=== PATIENT | female | born 1995 | race Caucasian/White ===

== ENCOUNTER 2017-02-27 06:46 | Emergency (ER) | payer MEDICAID ==
[~2017-02-27] VITALS: Ht 160 cm; Wt 68.0 kg
[~2017-02-27 06:46] MED LIST: IBUP-1542 PO
[2017-02-27 06:55] VITALS: Ht 160 cm; Wt 68.0 kg
[2017-02-27 07:32] LABS: ADD SCAN DIFF NO
[2017-02-27 07:35] LABS: ADD UMIC YES; URINE BILIRUBIN (Dip) NEGATIVE (NEGATIVE); URINE BLOOD (Dip) TRACE (NEGATIVE); URINE COLOR LT. YELLOW (YELLOW); URINE GLUCOSE (Dip) NEGATIVE (NEGATIVE); URINE KETONES (Dip) NEGATIVE (NEGATIVE); URINE LEUKOCYTE ESTERASE (Dip) NEGATIVE (NEGATIVE); URINE NITRITE (Dip) NEGATIVE (NEGATIVE); URINE TOTAL PROTEIN (Dip) NEGATIVE (NEGATIVE); URINE UROBILINOGEN (Dip) 0.2 E.U./dL (0.1-1.0)
[2017-02-27 07:51] LABS: ALBUMIN 4.5 g/dl (3.3-4.9)
[2017-02-27 07:52] LABS: POTASSIUM 3.6 mmol/L (3.5-5.1)
[2017-02-27 07:54] LABS: ALBUMIN/GLOBULIN RATIO 1.28; BILIRUBIN,INDIRECT 0.3 mg/dl (0-1.1); BILIRUBIN,TOTAL 0.3 mg/dl (0.2-1.3); CREATININE 0.7 mg/dl (0.44-1.00)
[2017-02-27 07:55] LABS: CALCIUM 9.3 mg/dl (8.4-10.2)
[2017-02-27 08:02] LABS: BASOPHILS % 0.5 % (0.0-2.0); EOSINOPHILS # 0.1 10^3/ul (0.0-0.5); HEMATOCRIT 40.9 % (37.0-47.0); HEMOGLOBIN 13.3 g/dl (12.0-16.0); LYMPHOCYTES # 2.2 10^3/ul (0.8-2.9); LYMPHOCYTES % 35.2 % (18.0-55.0); MEAN CORPUSCULAR HEMOGLOBIN 30.7 pg (29.0-33.0); MEAN CORPUSCULAR HGB CONC 32.5 g/dl (32.0-37.0); MEAN CORPUSCULAR VOLUME 94.5 fl (72.0-104.0); MONOCYTE # 0.4 10^3/ul (0.3-0.9); NEUTROPHIL # 3.5 10^3/ul (1.6-7.5); NEUTROPHILS % 56.1 % (30.0-74.0); PLATELET COUNT 248 10^3/UL (140-415); RED BLOOD COUNT 4.33 10^6/ul (4.20-5.40); RED CELL DISTRIBUTION WIDTH 13.2 % (11.5-14.5); WHITE BLOOD COUNT 6.3 10^3/ul (4.8-10.8)
[2017-02-27 08:14] LABS: BACTERIA,URINE FEW
--- NOTE | 2017-02-27 08:16 | RADRPT ---
PROCEDURE: Right Upper Quadrant Ultrasound. CLINICAL INDICATION: RUQ pain TECHNIQUE: Multiple real-time images were acquired of the patient's right upper quadrant abdomen a nd retroperitoneum utilizing a high resolution transducer. COMPARISON: None FINDINGS: The liver measures 12.5 cm, and demonstrates moderately increased echogenicity. The main portal vein is patent with proper directional flow. There is no intrahepatic biliary ductal dilatation. The ext rahepatic common bile duct measures 6 mm. There is cholelithiasis. There is no gallbladder wall thickening or pericholecystic fluid. The visualized pancreas is unremarkable. The right kidney measures 9.9 cm and demonstrates normal echotexture. There is no right renal calcul us or hydronephrosis. The visualized abdominal aorta and IVC are grossly unremarkable. IMPRESSION: Cholelithiasis without evidence of acute cholecystitis. Normal CBD. Moderate fatty infiltration of the liver. RPTAT: EE Physician Pat Date Time Electronically viewed and signed by Physician Pat on 02/27/2017 08:16 /
[2017-02-27] MEDS ORDERED: HYDR-906 PO (08:27)
[2017-02-27] MEDS ORDERED: IBUP-1542 PO (08:27)
[2017-02-27] MEDS ORDERED: ONDA4TAB14 PO (08:27)
--- NOTE | 2017-02-27 08:32 | ERD ---
ER Documentation Chief Complaint Date/Time DATE: 02/27/17 TIME: 08:30 Chief Complaint RUQ abdominal pain with nausea HPI 21-year-old female presents with right upper quadrant abdominal pain with associated nausea that started last night after eating and [employer]. Patient states that she has had gallstones for approximately 4 years that she is known about and has a consultation with a general surgeon on March 18. Pain is localized in the right upper quadrant, intermittent, sharp, moderate. She denies any fever, chills, vomiting. ROS All systems reviewed and are negative except as per history of present illness. Medications Home Meds Active Scripts Ondansetron (Ondansetron Odt) 4 Mg Tab.rapdis, 4 MG PO Q6H Y for NAUSEA AND/OR VOMITING, #10 TAB Prov:IVÁN READ PA-C 02/27/17 Ibuprofen* (Motrin*) 600 Mg Tab, 600 MG PO Q6, #30 TAB Prov:IVÁN READ PA-C 02/27/17 Hydrocodone/Acetaminophen ([place] 5-325 Tablet) 1 Each Tablet, 1 TAB PO Q6H Y for PAIN, #10 TAB Prov:IVÁN READ PA-C 02/27/17 Reported Medications Ibuprofen* (Motrin*) 600 Mg Tab, 600 MG PO Q8H Y for for leg pain, TAB 10/01/14 Allergies Allergies: Coded Allergies: No Known Allergies (Verified Allergy, Mild, 10/01/14) PMhx/Soc Medical and Surgical Hx: pt denies Medical Hx, pt denies Surgical Hx History of Surgery: No Anesthesia Reaction: No Hx Neurological Disorder: No Hx Respiratory Disorders: No Hx Cardiac Disorders: No Hx Psychiatric Problems: No Hx Miscellaneous Medical Probl: No Hx Alcohol Use: No Hx Substance Use: No Hx Tobacco Use: No Smoking Status: Never smoker Physical Exam Vitals Vital Signs Date Time Temp Pulse Resp B/P Pulse Ox O2 Delivery O2 Flow Rate FiO2 02/27/17 06:55 97.7 85 20 121/78 99 Physical Exam General: Well-developed, well-nourished. The patient appears in no acute distress. HEENT: Head is normocephalic, atraumatic. No scleral icterus. Neck: Supple. Nontender. Lungs: Clear to auscultation. Normal air movement. Heart: Regular rate and rhythm. S1 and S2 are normal. No murmurs, gallops, or rubs. Abdomen: Soft, negative Mercedes sign no McBurney's tenderness, there is very mild tenderness in the right upper quadrant and epigastric region, nondistended. Bowel sounds are normoactive. Extremities: No clubbing or cyanosis. Normal pulses. Moving extremities x 4. No weakness. Neurologic: Alert and oriented 3. No focal deficits. Skin: Normal turgor. No rash or lesions. Result Diagram: 02/27/17 0722 02/27/17 0722 Results 24 hrs Laboratory Tests Test 02/27/17 07:20 02/27/17 07:22 Urine Color LT. YELLOW Urine Clarity CLEAR Urine pH 5.0 Urine Specific [place] >=1.030 Urine Ketones NEGATIVE Urine Nitrite NEGATIVE Urine Bilirubin NEGATIVE Urine Urobilinogen 0.2 E.U./dL Urine Leukocyte Esterase NEGATIVE Urine Microscopic RBC 2-5/HPF Urine Microscopic WBC 0-2/HPF Urine Epithelial Cells FEW Urine Calcium Oxalate Crystals MODERATE Urine Bacteria FEW Urine Hemoglobin TRACE Urine Glucose NEGATIVE% Urine Total Protein NEGATIVE White Blood Count 6.310^3/ul Red Blood Count 4.3310^6/ul Hemoglobin 13.3g/dl Hematocrit 40.9% Mean Corpuscular Volume 94.5fl Mean Corpuscular Hemoglobin 30.7pg Mean Corpuscular Hemoglobin Concent 32.5g/dl Red Cell Distribution Width 13.2% Platelet Count 69610^3/UL Mean Platelet Volume 10.0fl Neutrophils % 56.1% Lymphocytes % 35.2% Monocytes % 7.0% Eosinophils % 1.0% Basophils % 0.5% Nucleated Red Blood Cells % 0.0/100WBC Neutrophils # 3.510^3/ul Lymphocytes # 2.210^3/ul Monocytes # 0.410^3/ul Eosinophils # 0.110^3/ul Basophils # 0.010^3/ul Nucleated Red Blood Cells # 0.010^3/ul Sodium Level 142mmol/L Potassium Level 3.6mmol/L Chloride Level 103mmol/L Carbon Dioxide Level 25mmol/L Anion Gap 18 Blood Urea Nitrogen 8mg/dl Creatinine 0.70mg/dl Glucose Level 99mg/dl Calcium Level 9.3mg/dl Total Bilirubin 0.3mg/dl Direct Bilirubin 0.00mg/dl Indirect Bilirubin 0.3mg/dl Aspartate Amino Transf (AST/SGOT) 22IU/L Alanine Aminotransferase (ALT/SGPT) 31IU/L Alkaline Phosphatase 67IU/L Total Protein 8.0g/dl Albumin 4.5g/dl Globulin 3.50g/dl Albumin/Globulin Ratio 1.28 Lipase 142U/L PROCEDURE: Right Upper Quadrant Ultrasound. CLINICAL INDICATION: RUQ pain TECHNIQUE: Multiple real-time images were acquired of the patient's right upper quadrant abdomen and retroperitoneum utilizing a high resolution transducer. COMPARISON: None FINDINGS: The liver measures 12.5 cm, and demonstrates moderately increased echogenicity. The main portal vein is patent with proper directional flow. There is no intrahepatic biliary ductal dilatation. The extrahepatic common bile duct measures 6 mm. There is cholelithiasis. There is no gallbladder wall thickening or pericholecystic fluid. The visualized pancreas is unremarkable. The right kidney measures 9.9 cm and demonstrates normal echotexture. There is no right renal calculus or hydronephrosis. The visualized abdominal aorta and IVC are grossly unremarkable. IMPRESSION: Cholelithiasis without evidence of acute cholecystitis. Normal CBD. Moderate fatty infiltration of the liver. RPTAT: EE Physician Pat Date Time Electronically viewed and signed by Physician Pat on 02/27/2017 08:16 Procedures/MDM ER course: Patient was given ibuprofen for pain. MDM: 21-year-old female presents with right upper quadrant abdominal pain consistent with acute biliary colic. She had a workup done, there is no history of fever, vitals are normal. No associated leukocytosis, jaundice, transaminitis, no choledocholithiasis. Her ultrasound of the gallbladder shows gallstones however no inflammatory changes including gallbladder wall thickening or pericholecystic fluid. The common bile duct was visualized and was normal. She does not present with any acute surgical abdominal process. Consultation on the of this month is appropriate for follow-up at this time given that her symptoms are very mild. She was advised to see the surgeon , return if she has any worsening or new symptoms. Departure Diagnosis: Primary Impression: Gallstones Condition: Good Patient Instructions: Biliary Colic With Gallstone (Confirmed) Additional Instructions: Follow-up with your surgeon, keep your appointment. He should return sooner for any worsening or new symptoms. IVÁN READ PA-C Feb 27, 2017 08:32
== END 2017-02-27 08:33 | disposition home or self-care (01) ==
LOC: FTE 06:46
DX: K80.20 Calculus of gallbladder without cholecystitis without obstruction (principal); R11.0 Nausea
CPT/HCPCS: 36415; 76705; 80053; 81001; 81003; 83690; 85025; Z7502